=== PATIENT | female | born 1985 | race Caucasian/White ===

== ENCOUNTER → 2020-08-03 | Outpatient (CLI) | payer OTHER ==
--- NOTE | 2020-08-22 07:26 | REP ---
RIGHT FOOT SERIES: CLINICAL: Injury, lateral foot pain. TECHNIQUE: AP, lateral, bilateral oblique views of the right foot. FINDINGS: There is a subtle poorly defined fracture fragment at the base of the fifth metatarsal bone. Overlying soft tissue swelling noted. IMPRESSION: Subtle small fracture at the base of the fifth metatarsal bone. MTDD
== END ==
LOC: M WUC 09:49
PROVIDERS: ATTEND Physician Assistant
DX: S92.354A Nondisplaced fracture of fifth metatarsal bone, right foot, initial encounter for closed fracture (principal); X58.XXXA Exposure to other specified factors, initial encounter; Y92.9 Unspecified place or not applicable

== ENCOUNTER → 2024-03-06 | Outpatient (CLI) | payer OTHER, BC | LOC: M SOG 12:54 | PROVIDERS: ATTEND Physician Assistant | DX: M79.645 Pain in left finger(s) (principal) ==